=== PATIENT | female | born 1955 | race Caucasian/White ===

== ENCOUNTER 2018-06-24 11:50 | Observation (INO) | payer BC ==
--- NOTE | 2018-06-24 12:16 | ED ---
Chest Pain HPI - General Stated Complaint: Chest pain Time Seen by Provider: 06/24/18 11:50 Source: patient, EMS, RN notes reviewed Mode of arrival: EMS - History of Present Illness Initial Comments: This is a 63-year-old female with no prior history of heart disease she has have a history of GERD and encephalitis in the past who states she's been having intermittent episodes of chest discomfort with radiation from her lips to her left neck and down her left arm into her back. Her last 2-3 days she's been having more episodes the pain was 10/10 severity. She saw her nurse practitioner in [place] an EKG done yesterday and was informed that if she had any more pain she should go to a hospital emergency department for evaluation. She states she is having approximately 1/10 in severity discomfort she has shortness of breath with this and some orthopnea no fevers chills nausea vomiting sweats or other symptoms. She was being driven down here by her who did get very nervous they stopped at a local nursing facility and EMS was called patient was transferred here MD Complaint: chest pain - Related Data Home Medications Medication Instructions Recorded Confirmed Gabapentin [Neurontin] 100 mg PO 5XD PRN 01/09/15 06/24/18 Meclizine [Antivert] 25 mg PO TID PRN 01/09/15 06/24/18 Allergies Allergy/AdvReac Type Severity Reaction Status Date / Time ibuprofen [From Motrin] Allergy Unknown Rash/Hives Verified 06/24/18 12:40 Review of Systems ROS Statement: Those systems with pertinent positive or pertinent negative responses have been documented in the HPI. ROS Other: All systems not noted in ROS Statement are negative. EKG Findings - EKG Results: EKG: interpreted by SORAIDA, sinus rhythm (Sinus rhythm 50 bradycardia with sinus arrhythmia. Interval 188 QRS duration 86 daily since QTC 424/36 minimal voltage criteria for LVH nonspecific anterior changes this is compared with EKG was received from the patient's primary care office done yesterday which did not show bradycardia time did show similar wave configuration.) Past Medical History Past Medical History: GERD/Reflux Additional Past Medical History / Comment(s): HX OF ENCEPHALITIS (1999) WHICH AFFECTED HER RIGHT TEMPORAL LOBE., NO RX FOR GERD-USES VINEGAR ., IRREGULAR BOWEL MOVEMENTS. History of Any Multi-Drug Resistant Organisms: None Reported Additional Past Surgical History / Comment(s): LAPAROSCOPY, 5 EYE SURGERYS. Past Anesthesia/Blood Transfusion Reactions: No Reported Reaction, Motion Sickness Additional Past Anesthesia/Blood Transfusion Reaction / Comment(s): NO FAMILY HX- PT ADOPTED. Past Psychological History: No Psychological Hx Reported Smoking Status: Never smoker Past Alcohol Use History: None Reported Past Drug Use History: None Reported - Past Family History Mother Family Medical History: Unable to Obtain Additional Family Medical History / Comment(s): PT ADOPTED General Exam - General Exam Comments Initial Comments: This is a well-developed well-nourished awake alert oriented 3 female General appearance: alert, anxious Head exam: Present: atraumatic, normocephalic, normal inspection Eye exam: Present: normal appearance, PERRL, EOMI. Absent: scleral icterus, conjunctival injection, periorbital swelling ENT exam: Present: normal exam, mucous membranes moist Neck exam: Present: normal inspection. Absent: tenderness, meningismus, lymphadenopathy Respiratory exam: Present: normal lung sounds bilaterally. Absent: respiratory distress, wheezes, rales, rhonchi, stridor Cardiovascular Exam: Present: normal rhythm, bradycardia, normal heart sounds. Absent: systolic murmur, diastolic murmur, rubs, gallop, clicks GI/Abdominal exam: Present: soft, normal bowel sounds. Absent: distended, tenderness, guarding, rebound, rigid Extremities exam: Present: normal inspection, full ROM, normal capillary refill. Absent: tenderness, pedal edema, joint swelling, calf tenderness Back exam: Present: normal inspection Neurological exam: Present: alert, oriented X3, CN II-XII intact Psychiatric exam: Present: normal affect, normal mood Skin exam: Present: warm, dry, intact, normal color. 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 On my initial evaluation the ventricular rate was 50 no evidence of PVCs or PACs were noted however. Reevaluation #2: 06/24/18 15:20 Did reevaluate patient several occasions she has no further chest pain at this time. I did discuss the findings multiple times with the patient and family members. Patient be admitted for evaluation of chest pain. CAT scan was negative for evidence of pulmonary embolism. He does state that she been under a lot of stress recently this may be a component of the presentation today. Reevaluation #3: 06/24/18 15:22 clinical research monitor: clinical research monitor was indicated to rule out dysrhythmia. Patient did present with chest pain. No dysrhythmias noted. The time of my evaluation the heart rate was within normal limits except for the bradycardia was noted. Heart rate was 50, evaluation. No PVCs noted however 1 PAC was seen. Critical Care Time Critical Care Time: Yes Critical Care Time: 31 minutes of critical care time which includes his presentation with history physical labs x-rays discussed with paramedics regarding the initial findings. Multiple reevaluation the patient. Discussion with the patient family regarding findings again discussed with Dr. Mcfarlane admission orders neck mentation the above Disposition Clinical Impression: Acute coronary syndrome, Unstable angina pectoris, Bradycardia Disposition: ADMITTED IP TO THIS HOSP Condition: Fair Referrals: Nonstaff,Physician [Primary Care Provider] - 1-2 days
[2018-06-24 12:32] LABS: Basophils % (A) 0 %; Eosinophils # (A) 0.2 k/uL (0-0.7); Eosinophils % (A) 2 %; HCT 42.1 % (34.0-46.0); HGB 13.7 gm/dL (11.4-16.0); Lymphocytes # (A) 2.3 k/uL (1.0-4.8); Lymphocytes % (A) 29 %; MCH 28.2 pg (25.0-35.0); MCHC 32.5 g/dL (31.0-37.0); MCV 86.5 fL (80.0-100.0); Mean Platelet Volume 6.7; Monocytes # (A) 0.4 k/uL (0-1.0); Monocytes % (A) 6 %; Neutrophils % (A) 62 %; Platelet Count 256 k/uL (150-450); RBC 4.86 m/uL (3.80-5.40); RDW 13.2 % (11.5-15.5)
--- NOTE | 2018-06-24 12:38 | XR ---
EXAMINATION TYPE: XR chest 2V DATE OF EXAM: 06/24/2018 COMPARISON: 01/06/2016 INDICATION: Chest pain TECHNIQUE: Frontal and lateral views of the chest are obtained. FINDINGS: The heart size is normal. The pulmonary vasculature is normal. The lungs are clear. IMPRESSION: 1. No acute pulmonary process.
[2018-06-24 12:44] LABS: ALT 26 U/L (9-52); AST 23 U/L (14-36); Albumin 4.3 g/dL (3.5-5.0); Alkaline Phosphatase 82 U/L (38-126); Anion Gap 8 mmol/L; Blood Urea Nitrogen 11 mg/dL (7-17); Calcium 9.9 mg/dL (8.4-10.2); Carbon Dioxide 23 mmol/L (22-30); Chloride 110 mmol/L (98-107); Creatine Kinase 180 U/L (30-135); Glucose 95 mg/dL (74-99); Magnesium 2.1 mg/dL (1.6-2.3); Potassium 4.3 mmol/L (3.5-5.1); Sodium 141 mmol/L (137-145); Total Bilirubin 0.5 mg/dL (0.2-1.3); Total Protein 6.9 g/dL (6.3-8.2)
[2018-06-24 12:47] LABS: INR 0.9 (<1.2); Partial Thromboplastin Time 25.3 sec (22.0-30.0)
[2018-06-24 13:00] LABS: D-Dimer 0.64 mg/L FEU (<0.60)
--- NOTE | 2018-06-24 14:48 | CT ---
CT CHEST FOR PULMONARY EMBOLISM. EXAMINATION TYPE: CT angio chest DATE OF EXAM: 06/24/2018 INDICATION: Chest pain CT DLP: 275.9 mGycm, Automated exposure control for dose reduction was used. CONTRAST: Patient injected with 100 ml mL of Isovue 370. COMPARISON: 10/30/2012 TECHNIQUE: CT of the chest is performed on a spiral scan at 2 mm thick sections. Study is performed with intravenous contrast timed for evaluation for pulmonary embolism. This will limit additional po rtions of the evaluation. 3-D MIP images reconstructed by the technologist are reviewed on the compu ter in the coronal and sagittal planes. FINDINGS: No persistent filling defects are evident to suggest an acute pulmonary embolism. No mediastinal or hilar adenopathy enlarged by CT criteria is evident. The ascending aorta diameter at the level of the main pulmonary artery is 2.8 cm. The main pulmonary artery diameter at the bifur cation is 2.8 cm. Lung windows are clear. Few scattered bulla are present. Limited CT section through the upper abdomen are unremarkable. IMPRESSIONS: 1. No acute pulmonary embolism.
[2018-06-24] MEDS ORDERED: NITROGLYCERIN SL TABS 0.4 MG TAB SUBLINGUAL PRN (15:24)
[2018-06-24] MEDS ORDERED: HEPARIN SODIUM,PORCINE 5,000 UNIT/ML 1 ML VIAL IV ONE (15:24)
[2018-06-24] MEDS ORDERED: GABAPENTIN 100 MG CAP PO PRN (15:26)
[2018-06-24] MEDS ORDERED: MECLIZINE 25 MG TAB PO PRN (15:26)
[2018-06-24] MEDS ORDERED: SODIUM CHLORIDE 0.9% 1,000 ML IV SCH (15:30)
[2018-06-24] MEDS ORDERED: HEPARIN SOD,PORK IN 0.45% NACL 25,000 UNIT in 0.45% NACL 1 250ML.BAG IV SCH (15:30)
[2018-06-24 16:49] VITALS: BMI 32.5
[2018-06-24 19:23] LABS: C Reactive Protein 8.6 mg/L (<10.0)
[2018-06-24] MEDS: NITROGLYCERIN OINT 1 INCH/GM PACKET TOPICAL SCH (19:50)
[2018-06-25] MEDS: NITROGLYCERIN OINT 1 INCH/GM PACKET TOPICAL SCH ×2 (00:01→03:34)
[2018-06-25 01:08] LABS: Cholesterol 214 mg/dL (<200); HDL Cholesterol 64 mg/dL (40-60); LDL Cholesterol,Calculated 130 mg/dL (0-99); Triglycerides 99 mg/dL (<150)
[2018-06-25 07:34] VITALS: RESP 18
[2018-06-25] MEDS ORDERED: REGADENOSON 0.4 MG/5 ML SYRINGE IV ONE (08:49)
[2018-06-25] MEDS ORDERED: CAFFEINE CITRATE 60 MG/3 ML VIAL IV PRN (08:49)
[2018-06-25] MEDS ORDERED: AMINOPHYLLINE 500 MG/20 ML VIAL IV PRN (08:49)
[2018-06-25] MEDS ORDERED: ASPIRIN 325 MG TAB PO SCH (09:00)
[2018-06-25] MEDS ORDERED: SODIUM CHLORIDE 0.9% IV ONE (09:02)
[2018-06-25] MEDS ORDERED: DIPYRIDAMOLE IV ONE (09:02)
--- NOTE | 2018-06-25 10:21 | ECHOF ---
Referral Reason:Chest pain MEASUREMENTS -------- HEIGHT: 170.2 cm WEIGHT: 93.9 kg BP: 114/70 IVSd: 1.2 cm (0.6 - 1.1) LVIDd: 3.7 cm (3.9 - 5.3) LVPWd: 1.5 cm (0.6 - 1.1) IVSs: 1.4 cm LVIDs: 3.1 cm LVPWs: 1.6 cm LAESV Index (A-L): 24.35 ml/m Ao Diam: 2.6 cm (2.0 - 3.7) AV Cusp: 1.9 cm (1.5 - 2.6) LA Diam: 3.3 cm (2.7 - 3.8) MV EXCURSION: 17.007 mm (> 18.000) MV EF SLOPE: 106 mm/s (70 - 150) EPSS: 0.4 cm MV E Anthony: 0.57 m/s MV DecT: 220 ms MV A Anthony: 1.01 m/s MV E/A Ratio: 0.57 RAP: 5.00 mmHg RVSP: 12.89 mmHg FINDINGS -------- Sinus rhythm. This was a technically adequate study. The left ventricular size is normal. There is mild concentric left ventricular hypertrophy. Overa ll left ventricular systolic function is normal with, an EF between 55 - 60 %. The right ventricle is normal in size. The left atrial size is normal. The right atrial size is normal. There is mild aortic valve sclerosis. There is no evidence of aortic regurgitation. Mild mitral annular calcification present. Mild mitral regurgitation is present. Trace tricuspid regurgitation present. There is no evidence of pulmonary hypertension. The right ventricular systolic pressure, as measured by Doppler, is 12.89mmHg. There is no pulmonic regurgitation present. The aortic root size is normal. There is no pericardial effusion. CONCLUSIONS -------- 1. The left ventricular size is normal. 2. There is mild concentric left ventricular hypertrophy. 3. Overall left ventricular systolic function is normal with, an EF between 55 - 60 %. 4. The right ventricle is normal in size. 5. The left atrial size is normal. 6. The right atrial size is normal. 7. There is mild aortic valve sclerosis. 8. Mild mitral annular calcification present. 9. Mild mitral regurgitation is present. 10. Trace tricuspid regurgitation present. 11. There is no evidence of pulmonary hypertension. 12. The right ventricular systolic pressure, as measured by Doppler, is 12.89mmHg. 13. There is no pulmonic regurgitation present. 14. The aortic root size is normal. 15. There is no pericardial effusion. WINCHER: Cathy Johnston RDCS
--- NOTE | 2018-06-25 11:25 | P.CRDCN ---
History of Present Illness History of present illness: This is a pleasant 63-year-old female past medical history significant for encephalitis, mitral valve prolapse patient states she underwent an EP study 20 years ago and [place]. She is unsure of the rationale her reasoning behind the EP study and she states she does not carry a diagnosis of an arrhythmia that she is aware of. She denies history of coronary artery disease, hypertension, dyslipidemia or diabetes mellitus. We have been asked to see her in consultation secondary to chest discomfort. She states intermittently for the previous 3 weeks she has been having a nonspecific discomfort in the chest that radiates through to her back down the left arm. She states more often than not she has been feeling a numbness tingling and burning in the left arm. The symptoms are not associated with activity or exertion. There is no associated shortness of breath, dizziness, nausea, vomiting, palpitations or diaphoresis. Because the pain was located over the left breast she was concerned that she had breast cancer. She went and saw her primary care physician and a mammogram was ordered. She also underwent an EKG at that time and they sent her to the hospital for an irregular heart rate. EKG from the office was reviewed and reveals sinus mechanism with sinus arrhythmia and poor R-wave progression. Telemetry tracings have been unremarkable for an acute arrhythmia. off and on for the last 3 weeks has been having burning in her left arm with pain in the left precordial region with radiation through to her back with shortness of breath. EKG reveals sinus bradycardia heart rate of 50 with poor R-wave progression. Chest x-ray is negative for acute cardiopulmonary process. CTA chest is negative for pulmonary embolism with no evidence of aortic aneurysm or dissection. Laboratory data reviewed, cardiac enzymes negative 3, WBC 8.0, hemoglobin 13.7, platelets 256, d-dimer 0.64, sodium 141, potassium 4.3, creatinine 0.59, magnesium 2.1, LDL 130, HDL 64 and TSH 2.19. She currently takes no daily cardiac medications. At the time of my exam: CONSTITUTIONAL: Denies fever. Denies chills. EYES: Denies blurred vision. Denies vision changes. Denies eye pain. EARS, NOSE, MOUTH & THROAT: Denies headache. Denies sore throat. Denies ear pain. CARDIOVASCULAR: Denies chest pain. Denies shortness of breath. Denies orthopnea. Denies PND. Denies palpitations. RESPIRATORY: Denies cough. GASTROINTESTINAL: Denies abdominal pain. Denies diarrhea. Denies constipation. Denies nausea. Denies vomiting. MUSCULOSKELETAL: Denies myalgias. INTEGUMENTARY: Denies pruitis. Denies rash. NEUROLOGIC: Denies numbness. Denies tingling. Denies weakness. PSYCHIATRIC: Denies anxiety. Denies depression. ENDOCRINE: Denies fatigue. Denies weight change. Denies polydipsia. Denies polyurina. GENITOURINARY: Denies burning, hematuria or urgency with micturation. HEMATOLOGIC: Denies history of anemia. Denies bleeding. Blood pressure 116/78 heart rate 72 afebrile maintaining oxygen saturation on room air GENERAL: This is a 63-year-old female in no apparent distress at the time of my examination. HEENT: Head is atraumatic, normocephalic. Pupils are equal, round. Sclerae anicteric. Conjunctivae are clear. Mucous membranes of the mouth are moist. Neck is supple. There is no jugular venous distention. No carotid bruit is heard. LUNGS: Clear to auscultation no wheezes, rales or rhonchi. No chest wall tenderness is noted on palpation or with deep breathing. HEART: Regular rate and rhythm without murmurs, rubs or gallops. S1 and S2 heard. ABDOMEN: Soft, nontender. Bowel sounds are heard. No organomegaly noted. EXTREMITIES: No evidence of peripheral edema and no calf tenderness noted. VASCULAR: Radial and dorsalis pedis pulses palpated, no evidence of clubbing. NEUROLOGIC: Patient is awake, alert and oriented x3. ASSESSMENT Chest pain, atypical for angina. An acute coronary event has been ruled out. Dyslipidemia History of encephalitis Obesity, BMI 32 PLAN An acute coronary event has been ruled out with no EKG evidence of acute ischemia and negative cardiac enzymes. Obtain 2-D echocardiogram and Doppler study to assess cardiac structure and function. Also to evaluate for reported history of mitral valve prolapse. Perform Lexiscan stress test to assess for reversible cardiac ischemia. If stress test is negative she is stable from a cardiac perspective. Lifestyle modifications are recommended for lowering of LDL cholesterol as well as weight loss. Follow up with Dr. Washburn upon discharge. Thank you kindly for this consultation. Nurse Practitioner note has been reviewed, I agree with a documented findings and plan of care. Patient was seen and examined. Past Medical History Past Medical History: GERD/Reflux Additional Past Medical History / Comment(s): HX OF ENCEPHALITIS (1999) WHICH AFFECTED HER RIGHT TEMPORAL LOBE., NO RX FOR GERD-USES VINEGAR ., IRREGULAR KATHARINA L MOVEMENTS. History of Any Multi-Drug Resistant Organisms: None Reported Additional Past Surgical History / Comment(s): LAPAROSCOPY, 5 EYE SURGERYS. Past Anesthesia/Blood Transfusion Reactions: No Reported Reaction, Motion S ickness Additional Past Anesthesia/Blood Transfusion Reaction / Comment(s): NO FAMILY HX- PT ADOPTED. Past Psychological History: No Psychological Hx Reported Smoking Status: Never smoker Past Alcohol Use History: None Reported Past Drug Use History: None Reported - Past Family History Mother Family Medical History: Unable to Obtain Additional Family Medical History / Comment(s): PT ADOPTED Medications and Allergies Home Medications Medication Instructions Recorded Confirmed Type Gabapentin [Neurontin] 100 mg PO 5XD PRN 01/09/15 06/24/18 History Meclizine [Antivert] 25 mg PO TID PRN 01/09/15 06/24/18 History Allergies Allergy/AdvReac Type Severity Reaction Status Date / Time ibuprofen [From Motrin] Allergy Unknown Rash/Hives Verified 06/24/18 12:40 Physical Exam Vitals: Vital Signs Temp Pulse Pulse Pulse Resp BP BP 06/25/18 07:00 98.0 F 72 18 116/78 06/25/18 03:36 98.0 F 67 14 114/70 06/25/18 03:30 16 06/24/18 23:47 97.9 F 62 14 112/76 06/24/18 23:11 16 06/24/18 20:00 16 06/24/18 18:43 98.1 F 78 15 117/81 06/24/18 17:05 06/24/18 16:20 98.4 F 55 L 18 128/78 06/24/18 16:00 98 F 74 16 125/72 06/24/18 15:30 58 L 18 144/65 06/24/18 15:00 71 16 114/65 06/24/18 12:26 61 06/24/18 12:10 98.3 F 60 18 135/81 Pulse Ox 06/25/18 07:00 96 06/25/18 03:36 96 06/25/18 03:30 06/24/18 23:47 97 06/24/18 23:11 06/24/18 20:00 06/24/18 18:43 98 06/24/18 17:05 98 06/24/18 16:20 96 06/24/18 16:00 96 06/24/18 15:30 96 06/24/18 15:00 96 06/24/18 12:26 06/24/18 12:10 97 Intake and Output 06/24/18 06/25/18 06/25/18 22:59 06:59 14:59 Intake Total 236 Balance 236 Intake: Oral 236 Other: Voiding Method Toilet Toilet Toilet # Voids 1 1 Results 06/24/18 12:20 06/24/18 12:20 Cardiac Enzymes 06/24/18 06/24/18 06/24/18 Range/Units 12:20 12:20 18:42 AST 23 (14-36) U/L Troponin I <0.012 <0.012 (0.000-0.034) ng/mL 06/25/18 Range/Units 00:17 AST (14-36) U/L Troponin I <0.012 (0.000-0.034) ng/mL Coagulation 06/24/18 06/25/18 Range/Units 12:20 00:17 PT 10.0 (9.0-12.0) sec APTT 25.3 47.2 H (22.0-30.0) sec Lipids 06/25/18 Range/Units 00:17 Triglycerides 99 (<150) mg/dL Cholesterol 214 H (<200) mg/dL HDL Cholesterol 64 H (40-60) mg/dL CBC 06/24/18 Range/Units 12:20 WBC 8.0 (3.8-10.6) k/uL RBC 4.86 (3.80-5.40) m/uL Hgb 13.7 (11.4-16.0) gm/dL Hct 42.1 (34.0-46.0) % Plt Count 256 (150-450) k/uL Comprehensive Metabolic Panel 06/24/18 Range/Units 12:20 Sodium 141 (137-145) mmol/L Potassium 4.3 (3.5-5.1) mmol/L Chloride 110 H (98-107) mmol/L Carbon Dioxide 23 (22-30) mmol/L BUN 11 (7-17) mg/dL Creatinine 0.59 (0.52-1.04) mg/dL Glucose 95 (74-99) mg/dL Calcium 9.9 (8.4-10.2) mg/dL AST 23 (14-36) U/L ALT 26 (9-52) U/L Alkaline Phosphatase 82 (38-126) U/L Total Protein 6.9 (6.3-8.2) g/dL Albumin 4.3 (3.5-5.0) g/dL Current Medications Generic Name Dose Route Start Last Admin Trade Name Freq PRN Reason Stop Dose Admin Aspirin 325 mg 06/25/18 09:00 Aspirin PO DAILY JASON Gabapentin 100 mg 06/24/18 15:26 Neurontin PO 5XD PRN DIZZINESS Sodium Chloride 1,000 mls @ 20 mls/hr 06/24/18 15:30 06/24/18 15:49 Saline 0.9% IV 20 mls/hr .Q24H JASON Administration Meclizine HCl 25 mg 06/24/18 15:26 Antivert PO TID PRN vertigo Nitroglycerin 0.4 mg 06/24/18 15:24 Nitrostat SUBLINGUAL Q5M PRN Chest Pain Intake and Output 06/24/18 06/25/18 06/25/18 22:59 06:59 14:59 Intake Total 236 Balance 236 Intake: Oral 236 Other: Voiding Method Toilet Toilet Toilet # Voids 1 1 06/24/18 12:20 06/24/18 12:20
--- NOTE | 2018-06-25 11:42 | P.HPIM ---
History of Present Illness H&P Date: 06/24/18 Chief Complaint: Chest discomfort Patient is a 63-year-old female with a known history of GERD, history of encephalitis and no prior cardiac history came to ER with complaints of chest discomfort intermittently for the past 4 weeks. For the last 2 days patient felt chest pain and symptoms got worse and also patient is having tingling sensation along the left Upper extremity and sometimes pain is radiating to the back. Patient otherwise denied any complaints of fever or chills. No cough is from production. Denied any change of pain with movement or position. Denied any palpitations no leg swelling. No sick contacts at home. Denied any recent upper respiratory infections. Chest pain is not associated with any shortness of breath or diaphoresis. No nausea vomiting or abdominal pain or diarrhea. Patient was told that her EKG was abnormal by her primary care physician. Denied any orthopnea or PND. EKG showed sinus bradycardia. Chest x-ray showed no acute cardio pulmonary process. Patient does have elevated d-dimer and CT angiogram was done showed no evidence of pulmonary embolism. Noaortic dissection was noted. ESR and CRP is not elevated. TSH within normal limits. Troponin 2 negative. Patient did take aspirin 1 at home without much relief. Denied any [id number] pain medication use. Review of Systems Constitutional: Patient denies any fever or chills . No generalized weakness or weight loss. Abdomen: Patient denied nausea vomiting and diarrhea and abdominal pain. Cardiovascular: Patient denies any chest pain or short of breath no palpitations. Chest discomfort. Respiratory: patient denied any cough is from production. No shortness of breath Neurologic: Patient denied any numbness or tingling headache. Musculoskeletal: Patient denies any complaints of joint swelling or deformity. Skin: Negative Psychiatric: Negative Endocrine: No heat or cold intolerance. No recent weight gain. Genitourinary: No dysuria or hematuria. All other 14 point ROS negative except the above Past Medical History Past Medical History: GERD/Reflux Additional Past Medical History / Comment(s): HX OF ENCEPHALITIS (1999) WHICH AFFECTED HER RIGHT TEMPORAL LOBE., NO RX FOR GERD-USES VINEGAR ., IRREGULAR BOWEL MOVEMENTS. History of Any Multi-Drug Resistant Organisms: None Reported Additional Past Surgical History / Comment(s): LAPAROSCOPY, 5 EYE SURGERYS. Past Anesthesia/Blood Transfusion Reactions: No Reported Reaction, Motion Sickness Additional Past Anesthesia/Blood Transfusion Reaction / Comment(s): NO FAMILY HX- PT ADOPTED. Past Psychological History: No Psychological Hx Reported Smoking Status: Never smoker Past Alcohol Use History: None Reported Past Drug Use History: None Reported - Past Family History Mother Family Medical History: Unable to Obtain Additional Family Medical History / Comment(s): PT ADOPTED Medications and Allergies Home Medications Medication Instructions Recorded Confirmed Type Gabapentin [Neurontin] 100 mg PO 5XD PRN 01/09/15 06/24/18 History Meclizine [Antivert] 25 mg PO TID PRN 01/09/15 06/24/18 History Allergies Allergy/AdvReac Type Severity Reaction Status Date / Time ibuprofen [From Motrin] Allergy Unknown Rash/Hives Verified 06/24/18 12:40 Physical Exam Vitals: Vital Signs Temp Pulse Pulse Pulse Resp BP BP 06/24/18 16:20 98.4 F 55 L 18 128/78 06/24/18 16:00 98 F 74 16 125/72 06/24/18 15:30 58 L 18 144/65 06/24/18 15:00 71 16 114/65 06/24/18 12:26 61 06/24/18 12:10 98.3 F 60 18 135/81 Pulse Ox 06/24/18 16:20 96 06/24/18 16:00 96 06/24/18 15:30 96 06/24/18 15:00 96 06/24/18 12:26 06/24/18 12:10 97 Intake and Output 06/24/18 06/24/18 06/24/18 06:59 14:59 22:59 Other: Weight 94.3 kg PHYSICAL EXAMINATION: Patient is lying in the bed comfortably, no acute distress, awake alert and oriented.. HEENT: Normocephalic. Neck is supple. Pupils reactive. Nostrils clear. Oral cavity is moist. Ears reveal no drainage. Neck reveals no JVD, carotid bruits, or thyromegaly. CHEST EXAMINATION: Trachea is central. Symmetrical expansion. Lung jung clear to auscultation and percussion. CARDIAC: Normal S1, S2 with no gallops. No murmurs ABDOMEN: Soft. Bowel sounds normal. No organomegaly. No abdominal bruits. Extremities: reveal no edema. No clubbing or cyanosis Neurologically awake, alert, oriented x3 with well-coordinated movements. No focal deficits noted Skin: No rash or skin lesions. Psychiatric: Coperative. Nonsuicidal Musculoskeletal: No joint swelling or deformity. Normal range of motion. Results CBC & Chem 7: 06/24/18 12:20 06/24/18 12:20 Labs: Abnormal Lab Results - Last 24 Hours (Table) 06/24/18 06/24/18 Range/Units 12:20 12:20 D-Dimer 0.64 H (<0.60) mg/L FEU Chloride 110 H (98-107) mmol/L Creatine Kinase 180 H (30-135) U/L Thrombosis Risk Factor Assmnt - DVT/VTE Prophylaxis DVT/VTE Prophylaxis: Pharmacologic Prophylaxis ordered - Choose All That Apply Any of the Below Risk Factors Present?: No Other Risk Factors: Yes Each Risk Factor Represents 2 Points: Age 61-74 years Thrombosis Risk Factor Assessment Total Risk Factor Score: 2 Thrombosis Risk Factor Assessment Level: Low Risk Assessment and Plan Assessment: Atypical chest pain. Rule out ACS. Unlikely pericarditis. ESR and CRP is not elevated. GERD History of encephalitis Obesity with BMI 32.6 Plan: Patient be continued on telemetry monitoring. Serial EKG and troponins. Patient was started on heparin drip. Lipid profile was ordered. TSH, ESR, CRP within normal limits. Cardiology was consulted. 2-D echocardiogram will be ordered. Patient may need stress test. Otherwise currently hemodynamically stable. Further recommendations based on the clinical course. Discussed with the patient and her at bedside in detail. Time with Patient: Greater than 30
--- NOTE | 2018-06-25 12:27 | P.STRESS ---
- Stress Test Note Stress Test Results/Findings: Exam Performed: NM stress persantine cardiolite Exam Date: 06/25/18 Reason for Exam: [place] Height: 5 ft 7 in Weight: 93.894 kg Protocol: PERSANTINE CARDIOLITE STRESS Stage: NA Duration of Exercise: NA Resting Heart Rate: 78 Resting Blood Pressure: 150/73 Maximum Achieved Heart Rate: 95 Maximum Achieved Blood Pressure: 150/73 85% PMHR: NA 100% PMHR: NA METS: NA Technologist Comment: Stress Test Results/Findings: This is a 63-year-old female who was admitted to the hospital with symptoms of c hest pain and shortness of breath. Patient also has family history of ischemic heart disease. Stress data: Baseline EKG showed a sinus rhythm with normal AK interval and QRS duration. Blood pressure at rest is 150/73 with pulse rate of 78. History and dose of Lexiscan was infused. EKGs taken during and after infusion did not reveal any significant changes ischemia. Final impression: #1. Negative Lexiscan stress test #2 report on nuclear images to be given by the radiologist
[2018-06-25 12:49] VITALS: BP 128/80; PULSE 73; TEMP 98.4
--- NOTE | 2018-06-25 13:07 | NM ---
EXAMINATION TYPE: NM stress lexiscan cardiolite DATE OF EXAM: 06/25/2018 COMPARISON: NONE HISTORY: 63-year-old female chest pain, unstable angina, difficulty in breathing, palpitations, PAD. TECHNIQUE: After the intravenous administration of 10.06 mCi Tc 99m Cardiolite- Cardiolite resting S PECT images acquired 45 minutes post injection. The patient received 53.8 mg of Persantine, 25.8 mCi Tc 99m Cardiolite- Stress images obtained 40 min utes post injection FINDINGS: Review of stress and rest SPECT images demonstrates fixed decreased perfusion along the inferior apex and basal inferior wall. The defects are more pronounced on rest imaging suggesting attenuation carol ann fact. No distinct stress induced perfusion abnormality. Gated analysis shows normal wall motion with an estimated left ventricular ejection fraction of 67 %. TID is calculated at 1.0, within normal li mits. IMPRESSION: Prominent attenuation artifact along the apex and inferior wall demonstrating fixed defects which are more pronounced on rest imaging. No definite suspicious reversibility is seen.
[2018-06-25] MEDS ORDERED: KETOROLAC 30 MG/ML 1 ML VIAL IVP STA (15:14)
[2018-06-25] MEDS ORDERED: CYCLOBENZAPRINE 5 MG TAB PO STA (15:15)
--- NOTE | 2018-06-26 11:36 | EST ---
Stress Test Results/Findings: Exam Performed: NM stress persantine cardiolite Exam Date: 06/25/18 Reason for Exam: [place] Height: 5 ft 7 in Weight: 93.894 kg Protocol: PERSANTINE CARDIOLITE STRESS Stage: NA Duration of Exercise: NA Resting Heart Rate: 78 Resting Blood Pressure: 150/73 Maximum Achieved Heart Rate: 95 Maximum Achieved Blood Pressure: 150/73 85% PMHR: NA 100% PMHR: NA METS: NA Technologist Comment: Stress Test Results/Findings: This is a 63-year-old female who was admitted to the hospital with symptoms of chest pain and shortness of breath. Patient also has family history of ischemic heart disease. Stress data: Baseline EKG showed a sinus rhythm with normal OR interval and QRS duration. Blood pressure at rest is 150/73 with pulse rate of 78. History and dose of Lexiscan was infused. EKGs taken during and after infusion did not reveal any significant changes ischemia. Final impression: #1. Negative Lexiscan stress test #2 report on nuclear images to be given by the radiologist OSMANI
== END 2018-06-25 17:57 | disposition home or self-care (01) ==
LOC: EC 11:50 → 1SOBS 15:24
PROVIDERS: ADMIT Internal Medicine; ATTEND Internal Medicine
DX: R07.89 Other chest pain (principal); R00.1 Bradycardia, unspecified; R79.89 Other specified abnormal findings of blood chemistry; I34.1 Nonrheumatic mitral (valve) prolapse; E78.5 Hyperlipidemia, unspecified; K21.9 Gastro-esophageal reflux disease without esophagitis; R20.0 Anesthesia of skin; R20.2 Paresthesia of skin; E66.9 Obesity, unspecified; Z68.32 Body mass index [BMI] 32.0-32.9, adult; Z79.899 Other long term (current) drug therapy; Z88.6 Allergy status to analgesic agent; Z86.61 Personal history of infections of the central nervous system
CPT/HCPCS: 96366 ×2; 96376; 96365; 99291; 36415; 93005; 93017; 93306; 85379; 83880; 80061; 80053; 85652; 84443; 82550; 83735; 84484 ×2; 85025; 85610; 85730 ×2; 86140; 71046; 71275; 78452; G0378 ×2; A9500; J1644 ×2; Q9967

== ENCOUNTER → 2018-07-13 | Outpatient (CLI) | payer BC ==
--- NOTE | 2018-07-14 10:09 | MM ---
Reason for exam: screening (asymptomatic). Last mammogram was performed 6 years ago. History: Patient is postmenopausal and history of other cancer. Physical Findings: A clinical breast exam by your physician is recommended on an annual basis and results should be correlated with mammographic findings. MG 3D Screening Mammo W/Cad Bilateral CC and MLO view(s) were taken. Prior study comparison: July 15, 2012, bilateral digital screening mammo w/CAD. July 17, 2011, CAD bilateral diagnostic mammogram. The breast tissue is heterogeneously dense. This may lower the sensitivity of mammography. Stable benign calcifications. There is no discrete abnormality. No significant changes when compared with prior studies. ASSESSMENT: Benign, BI-RAD 2 RECOMMENDATION: Routine screening mammogram of both breasts in 1 year.
== END | disposition home or self-care (01) ==
LOC: RADMAMWWP 12:24
PROVIDERS: ATTEND Surgery
DX: Z12.31 Encounter for screening mammogram for malignant neoplasm of breast (principal)
CPT/HCPCS: 77063; 77067

== ENCOUNTER → 2018-07-23 | Outpatient (CLI) | payer BC ==
--- NOTE | 2018-07-24 08:53 | USB ---
Reason for exam: clinical finding. History: Patient is postmenopausal and history of other cancer. Physical Findings: Nurse did not find any significant physical abnormalities on exam. US Breast BILAT Left complete breast ultrasound includes all four quadrants, the retroareolar region and axilla. Finding demonstrates a 0.2 x 0.2 x 0.3cm lesion too small to characterize at 3 o'clock. Right complete breast ultrasound includes all four quadrants, the retroareolar region and axilla. Finding demonstrates no cystic or solid lesion seen. These results were verbally communicated with the patient and result sheet given to the patient on 07/23/18. ASSESSMENT: Probably benign, BI-RAD 3 RECOMMENDATION: Ultrasound of the left breast in 6 months.
== END ==
LOC: RADUSWWP 15:24
PROVIDERS: ATTEND Family Medicine
DX: N63.20 Unspecified lump in the left breast, unspecified quadrant (principal)

== ENCOUNTER → 2019-11-25 | Outpatient (CLI) | payer BC ==
--- NOTE | 2019-11-25 11:29 | MM ---
Reason for exam: additional evaluation requested from prior study. Last mammogram was performed 1 year and 4 months ago. History: Patient is postmenopausal and has history of other cancer at age 60. Physical Findings: Nurse did not find any significant physical abnormalities on exam. MG Diagnostic Mammo w CAD SOREN Bilateral CC and MLO view(s) were taken. Prior study comparison: July 23, 2018, bilateral US breast BILAT. July 13, 2018, bilateral MG 3d screening mammo w/cad. There are scattered fibroglandular densities. New grouped calcifications subareolar right breast punctate and heterogeneous. Biopsy recommended. These results were verbally communicated with the patient and result sheet given to the patient on 11/25/19. ASSESSMENT: Incomplete: need additional imaging evaluation, BI-RAD 0 RECOMMENDATION: Ultrasound of the left breast. (3 o'clock as follow up and lower outer quadrant at site of pain)
--- NOTE | 2019-11-25 11:31 | USB ---
Reason for exam: additional evaluation requested from abnormal screening. History: Patient is postmenopausal and has history of other cancer at age 60. US Breast Limited LT Left limited breast ultrasound including focal area of concern, retroareolar and axilla demonstrates no cystic or solid lesion seen. Scanned 12-6 o'clock. Previous 3 o'clock area does not persist. These results were verbally communicated with the patient and result sheet given to the patient on 11/25/19. ASSESSMENT: Suspicious, BI-RAD 4 RECOMMENDATION: Stereotactic core biopsy of the left breast. (calcifications) Called office with mammographic findings and has scheduled an appointment for the patient with Dr. Decker. Biopsy scheduled for 12/20/19 at 8:00. PRELIMINARY REPORT CALLED AND FAXED TO DR. DECKER ON 11/25/19.
== END | disposition home or self-care (01) ==
LOC: RADMAMWWP 08:51
PROVIDERS: ATTEND Student in an Organized Health Care Education/Training Program
DX: R92.8 Other abnormal and inconclusive findings on diagnostic imaging of breast (principal)
CPT/HCPCS: 77066

== ENCOUNTER → 2019-11-26 | Outpatient (CLI) | payer BC ==
[2019-11-26 17:26] LABS: C Reactive Protein 0.7 mg/dL (0.0-0.8)
[2019-11-26 19:47] LABS: Hemoglobin A1C 5.9 % (4.0-6.0)
== END | disposition home or self-care (01) ==
LOC: LABWHC1 08:27
PROVIDERS: ATTEND Psychiatry & Neurology Neurology
DX: R26.9 Unspecified abnormalities of gait and mobility (principal); Z79.899 Other long term (current) drug therapy; Z86.61 Personal history of infections of the central nervous system
CPT/HCPCS: 36415; 82306; 82607; 83036; 85652; 86140

== ENCOUNTER → 2019-12-20 | Day surgery (SDC) | payer BC ==
[2019-12-20 07:46] VITALS: RESP 16; TEMP 98
[2019-12-20 09:53] VITALS: BP 122/80; PULSE 61
--- NOTE | 2019-12-20 14:26 | MM ---
EXAMINATION TYPE: MG stereo VAD BX RT DATE OF EXAM: 12/20/2019 COMPARISON: NONE CLINICAL HISTORY: Abnormal mammogram TECHNIQUE: Stereotactic guided core biopsy of right breast. FINDINGS: The procedure of stereotactic guided core biopsy was explained to the patient. Benefits, alternatives, and risks were discussed. Specific risks of bleeding was discussed given the proximity of vessels. An informed consent was then obtained. Optimal path was utilized for the procedure. Targeting was provided by radiology. Procedure was performed by radiology. A vacuum assisted biopsy device was used to obtain 6 core samples. Specimen: Calcifications are within the specimen. Postprocedure mammogram: Core marker is within the right subareolar breast at the expected location of the prior calcifications. Discharge instructions were discussed with the patient. The patient will follow- up evaluation for results. Patient was released in stable condition having tolerated procedure well. IMPRESSION: 1. Successful stereotactic core biopsy right breast calcifications Recommendations: 1. Recommendations are pending pathology results. Pathology Results: High Risk RIGHT BREAST, STEREOTACTIC CORE BIOPSY: Intraductal papilloma and background fibrocystic changes. Recommendation Surgical consult of the right breast. (Needle localization) OSMANI
== END ==
LOC: RADMAMWWP 07:08
PROVIDERS: ATTEND Student in an Organized Health Care Education/Training Program
DX: D24.1 Benign neoplasm of right breast (principal); Z88.6 Allergy status to analgesic agent
CPT/HCPCS: 19081; 88305; A4648; J2001

== ENCOUNTER → 2020-08-03 | Outpatient (CLI) | payer BC ==
--- NOTE | 2020-08-04 09:55 | MM ---
Reason for exam: follow-up at short interval from prior study. Last mammogram was performed 8 months ago. History: Patient is postmenopausal, has history of high-risk lesion on a previous biopsy at age 64, and has history of other cancer at age 60. High risk MG stereo VAD BX RT of the right breast, December 20, 2019. Physical Findings: Nurse did not find any significant physical abnormalities on exam. MG 3D Diag Mammo W/Cad RT CC and MLO view(s) were taken of the right breast. Prior study comparison: November 25, 2019, bilateral MG diagnostic mammo w CAD SOREN. July 13, 2018, bilateral MG 3d screening mammo w/cad. There are scattered fibroglandular densities. Stable benign calcifications. There is no discrete abnormality. No significant new findings when compared with previous films. These results were verbally communicated with the patient and result sheet given to the patient on 08/03/20. ASSESSMENT: Benign, BI-RAD 2 RECOMMENDATION: Routine screening mammogram of both breasts in 4 months. Back on schedule.
== END | disposition home or self-care (01) ==
LOC: RADMAMWWP 14:22
PROVIDERS: ATTEND Student in an Organized Health Care Education/Training Program
DX: R92.1 Mammographic calcification found on diagnostic imaging of breast (principal); Z78.0 Asymptomatic menopausal state
CPT/HCPCS: 77061; 77065

== ENCOUNTER → 2020-12-11 | Outpatient (CLI) | payer BC ==
--- NOTE | 2020-12-12 09:58 | MM ---
Reason for exam: screening (asymptomatic). Last mammogram was performed 4 months ago. History: Patient is postmenopausal, has history of high-risk lesion on a previous biopsy at age 64, and has history of other cancer at age 60. Family history of breast cancer in mother. High risk MG stereo VAD BX RT of the right breast, December 20, 2019. Took hormonal contraceptives for 8 years. Physical Findings: A clinical breast exam by your physician is recommended on an annual basis and results should be correlated with mammographic findings. MG 3D Screening Mammo W/Cad Bilateral CC and MLO view(s) were taken. Prior study comparison: November 25, 2019, bilateral MG diagnostic mammo w CAD SOREN. July 13, 2018, bilateral MG 3d screening mammo w/cad. There are scattered fibroglandular densities. There are benign appearing round calcifications bilaterally. There is no discrete abnormality. ASSESSMENT: Benign, BI-RAD 2 RECOMMENDATION: Routine screening mammogram of both breasts in 1 year.
== END | disposition home or self-care (01) ==
LOC: RADMAMWWP 09:53
PROVIDERS: ATTEND Student in an Organized Health Care Education/Training Program
DX: Z12.31 Encounter for screening mammogram for malignant neoplasm of breast (principal); Z78.0 Asymptomatic menopausal state; Z80.3 Family history of malignant neoplasm of breast; Z79.3 Long term (current) use of hormonal contraceptives
CPT/HCPCS: 77063; 77067

== ENCOUNTER → 2022-01-29 | Outpatient (CLI) | payer BC ==
--- NOTE | 2022-01-30 08:38 | MM ---
Reason for Exam: Screening (asymptomatic). Last mammogram was performed 1 year(s) and 2 month(s) ago. Patient History: Menarche at age 12. First Full-Term at age 25. Postmenopausal. Other cancer, age 60. Patient used Hormonal Contraceptives for 8 years. 12/20/2019, High risk Core Biopsy on the right side. Mother had breast cancer. Risk Values: Tierra 5 year model risk: 4.0%. NCI Lifetime model risk: 15.3%. Prior Study Comparison: 11/25/2019 Bilateral Diagnostic Mammogram, [facility]. 08/03/2020 Right Diagnostic Mammogram, [facility]. 12/11/2020 Bilateral Screening Mammogram, [facility]. Tissue Density: The breast tissue is heterogeneously dense. This may lower the sensitivity of mammography. Findings: Analyzed By CAD. There is no suspicious group of microcalcifications or new suspicious mass in either breast. Overall Assessment: Benign, BI-RAD 2 Management: Screening Mammogram of both breasts in 1 year. A clinical breast exam by your physician is recommended on an annual basis and results should be correlated with mammographic findings. Electronically signed and approved by: Tigre Terrazas M.D. Radiologis
== END | disposition home or self-care (01) ==
LOC: RADMAMWWP 15:49
PROVIDERS: ATTEND General Practice
DX: Z12.31 Encounter for screening mammogram for malignant neoplasm of breast (principal); Z78.0 Asymptomatic menopausal state; Z80.3 Family history of malignant neoplasm of breast
CPT/HCPCS: 77063; 77067

== ENCOUNTER → 2022-11-13 | Outpatient (CLI) | payer MEDICARE | END | disposition home or self-care (01) | LOC: LABWHC1 13:04 | PROVIDERS: ATTEND Psychiatry & Neurology Neurology | DX: R20.2 Paresthesia of skin (principal); R26.0 Ataxic gait; R20.0 Anesthesia of skin; Z79.899 Other long term (current) drug therapy; Z86.61 Personal history of infections of the central nervous system | CPT/HCPCS: 36415; 82306; 82607; 83036 ==

== ENCOUNTER → 2023-02-03 | Outpatient (CLI) | payer MEDICARE ==
--- NOTE | 2023-02-04 06:37 | MM ---
Reason for Exam: Screening (asymptomatic). Last screening mammogram was performed 12 month(s) ago. Patient History: Menarche at age 12. First Full-Term at age 25. Postmenopausal. Other cancer, age 60. Patient used Hormonal Contraceptives for 8 years. 12/20/2019, High risk Core Biopsy on the right side. Mother had breast cancer. Risk Values: Tierra 5 year model risk: 4.1%. NCI Lifetime model risk: 14.9%. Prior Study Comparison: 08/03/2020 Right Diagnostic Mammogram, [facility]. 12/11/2020 Bilateral Screening Mammogram, [facility]. 01/29/2022 Bilateral MG 3D screening mammo w/cad, [facility]. Tissue Density: The breast tissue is heterogeneously dense. This may lower the sensitivity of mammography. Findings: Analyzed By CAD. There is no suspicious group of microcalcifications or new suspicious mass in either breast. Benign calcifications within both breasts. Biopsy clip within the right breast. Overall Assessment: Benign, BI-RAD 2 Management: Screening Mammogram of both breasts in 1 year. A clinical breast exam by your physician is recommended on an annual basis and results should be correlated with mammographic findings. Note on Tierra scores and lifetime risk: 1. A Tierra score greater than 3% is considered moderate risk. If this is the case, consider specialist referral to assess eligibility for a risk reducing agent. If overall lifetime risk for the development of breast cancer is 20% or higher, the patient may qualify for future screening with alternating mammogram and breast MRI. Electronically signed and approved by: Ghassan Crenshaw D.O.
== END | disposition home or self-care (01) ==
LOC: RADMAMWWP 10:54
PROVIDERS: ATTEND Family Medicine
DX: Z12.31 Encounter for screening mammogram for malignant neoplasm of breast (principal); Z78.0 Asymptomatic menopausal state; Z80.3 Family history of malignant neoplasm of breast
CPT/HCPCS: 77063; 77067

== ENCOUNTER → 2024-02-05 | Outpatient (CLI) | payer MEDICARE ==
--- NOTE | 2024-02-06 22:56 | MM ---
Reason for Exam: Screening (asymptomatic). Last screening mammogram was performed 12 month(s) ago. Patient History: Menarche at age 12. First Full-Term at age 25. Postmenopausal. Patient used Hormonal Contraceptives for 8 years. 12/20/2019, High risk Core Biopsy on the right side. Mother had breast cancer. Risk Values: Tierra 5 year model risk: 4.1%. NCI Lifetime model risk: 14.3%. Prior Study Comparison: 12/11/2020 Bilateral Screening Mammogram, [facility]. 01/29/2022 Bilateral MG 3D screening mammo w/cad, [facility]. 02/03/2023 Bilateral MG 3D screening mammo w/cad, [facility]. Tissue Density: There are scattered areas of fibroglandular density. Findings: Analyzed By CAD. The pattern is symmetrical. Pattern appears stable. Few scattered benign calcifications are present No suspicious groups of microcalcifications, spiculated or lobular masses, architectural distortion or other secondary signs of malignancy are mammographically apparent. Overall Assessment: Benign, BI-RAD 2 Management: Screening Mammogram of both breasts in 1 year. A negative mammogram report should not preclude additional follow up of suspicious palpable abnormalities. Patient should continue monthly self breast exam. A clinical breast exam by your physician is recommended on an annual basis and results should be correlated with mammographic findings. Note on Tierra scores and lifetime risk: 1. A Tierra score greater than 3% is considered moderate risk. If this is the case, consider specialist referral to assess eligibility for a risk reducing agent. 2. If overall lifetime risk for the development of breast cancer is 20% or higher, the patient may qualify for future screening with alternating mammogram and breast MRI. [facility], , 02/06/2024 10:53 PM. Electronically signed and approved by: Aristeo Stevens D.O. Radiologis
== END | disposition home or self-care (01) ==
LOC: RADMAMWWP 13:54
PROVIDERS: ATTEND Family Medicine
DX: Z12.31 Encounter for screening mammogram for malignant neoplasm of breast (principal); R92.323 Mammographic fibroglandular density, bilateral breasts; Z78.0 Asymptomatic menopausal state; Z80.3 Family history of malignant neoplasm of breast
CPT/HCPCS: 77063; 77067